=== PATIENT | female | born 1975 | race Asian ===

== ENCOUNTER 2025-06-06 06:31 | Day surgery (SDC) | payer BC, SELFPAY ==
[2025-06-06 07:19] LABS: Glucose - Point of Care 117 mg/dl (70-99)
== END 2025-06-06 08:48 | disposition home or self-care (01) ==
LOC: GI 06:31
PROVIDERS: ATTENDING PHYSICIAN Internal Medicine Gastroenterology
DX: Z12.11 Encounter for screening for malignant neoplasm of colon (principal); D12.0 Benign neoplasm of cecum; D12.8 Benign neoplasm of rectum
CPT/HCPCS: 45385; 45380; 82962; 88305